=== PATIENT | female | born 1945 | race Caucasian/White ===

== ENCOUNTER → 2016-09-09 | Outpatient (CLI) | payer MEDICARE, BC ==
[2016-09-09 08:53] LABS: Bilirubin, Delta 0.3 mg/dL (0.0-0.2)
== END | disposition home or self-care (01) ==
LOC: LABWHC1 07:57
PROVIDERS: ATTEND Internal Medicine Cardiovascular Disease
DX: E78.5 Hyperlipidemia, unspecified (principal)
CPT/HCPCS: 36415; 80061; 80076

== ENCOUNTER → 2017-02-03 | Outpatient (CLI) | payer MEDICARE, BC ==
--- NOTE | 2017-02-05 08:36 | MM ---
Reason for exam: screening (asymptomatic). Last mammogram was performed 1 year ago. History: Patient is postmenopausal. Family history of breast cancer in maternal cousin and breast cancer in cousin. Benign left mammotome panel of the left breast, October 28, 2011. Took estrogen for 10 years beginning at age 55. Took progesterone for 10 years beginning at age 55. Physical Findings: A clinical breast exam by your physician is recommended on an annual basis and results should be correlated with mammographic findings. MG 3D Screening Mammo W/Cad Bilateral CC and MLO view(s) were taken. Prior study comparison: January 23, 2016, bilateral MG 3d screening mammo w/cad. December 30, 2014, bilateral MG screening mammo w CAD. The breast tissue is heterogeneously dense. This may lower the sensitivity of mammography. Finding: There are typically benign vascular, dystrophic, round calcifications in both breasts. Previous mammotome biopsy in the left breast. There is a chronic nodularity bilaterally. There is no discrete abnormality. ASSESSMENT: Benign, BI-RAD 2 RECOMMENDATION: Routine screening mammogram of both breasts in 1 year.
== END | disposition home or self-care (01) ==
LOC: RADMAMWWP 14:50
PROVIDERS: ATTEND Family Medicine
DX: Z12.31 Encounter for screening mammogram for malignant neoplasm of breast (principal)
CPT/HCPCS: 77063; G0202

== ENCOUNTER → 2017-09-15 | Outpatient (CLI) | payer MEDICARE, BC ==
--- NOTE | 2017-09-15 13:45 | NM ---
EXAMINATION TYPE: NM bone scan whole body DATE OF EXAM: 09/15/2017 COMPARISON: 02/25/2014 HISTORY: 71-year-old female with low back pain and mid back pain for one month. Patient fell one neisha h ago. No history of cancer. Left hip replacement 2 years ago. Technique: Delayed whole-body scanning was performed following the injection of 24.0 mCi Tc 99m MDP. Images acquired 3 hours post injection. FINDINGS: Degenerative tracer activity at the shoulders, wrists/base of the thumbs, and knees. The previous abn ormal activity at L1 has resolved. There is no abnormal intense activity at the T11 and T12 levels. N o suspicious distribution of tracer to suggest osseous metastatic disease. Some activity relating to degenerative facet arthropathy in the lower lumbar spine. Photopenic defect at the left hip compatibl e with patient's hip replacement. IMPRESSION: 1. Focal intense activity involving the T11 and T12 vertebral bodies suggesting underlying acute or s ubacute vertebral body fractures. Clinically correlate. 2. The previous abnormal L1 activity has resolved in the interval.
== END | disposition home or self-care (01) ==
LOC: RADNMMAIN 09:44
PROVIDERS: ATTEND Physical Medicine & Rehabilitation
DX: M54.5 Low back pain (principal); M47.817 Spondylosis without myelopathy or radiculopathy, lumbosacral region; M54.6 Pain in thoracic spine; M47.814 Spondylosis without myelopathy or radiculopathy, thoracic region
CPT/HCPCS: 78306; A9503

== ENCOUNTER → 2018-02-16 | Outpatient (CLI) | payer MEDICARE, BC ==
--- NOTE | 2018-02-16 10:33 | XR ---
EXAMINATION TYPE: XR chest 2V DATE OF EXAM: 02/16/2018 COMPARISON: None TECHNIQUE: PA and lateral views submitted. HISTORY: Dyspnea FINDINGS: The lungs are clear and there is no pneumothorax, pleural effusion, or focal pneumonia. Chronic sev ere compression fracture lower thoracic spine stable relative to x-ray 09/09/2017 thoracic spine. Athe rosclerotic change of the aorta. Sclerotic lesion left humeral head. No overt failure. Arthropathy of the shoulder. IMPRESSION: 1. No acute process. 2. Sclerotic lesion left humeral head. Differential diagnosis includes a bone infarction or chondroid lesion. Correlate with the patient's symptoms and if necessary with bone scan.
== END | disposition home or self-care (01) ==
LOC: RADXRMAIN 10:14
PROVIDERS: ATTEND Family Medicine
DX: R06.09 Other forms of dyspnea (principal); I10 Essential (primary) hypertension
CPT/HCPCS: 71046

== ENCOUNTER → 2018-03-31 | Outpatient (CLI) | payer MEDICARE, BC ==
--- NOTE | 2018-04-01 11:41 | MM ---
Reason for exam: screening (asymptomatic). Last mammogram was performed 1 year and 2 months ago. History: Patient is postmenopausal. Family history of breast cancer in maternal cousin and breast cancer in cousin. Benign left mammotome panel of the left breast, October 28, 2011. Took estrogen for 10 years beginning at age 55. Took progesterone for 10 years beginning at age 55. Physical Findings: A clinical breast exam by your physician is recommended on an annual basis and results should be correlated with mammographic findings. MG 3D Screening Mammo W/Cad Bilateral CC and MLO view(s) were taken. Prior study comparison: February 03, 2017, bilateral MG 3d screening mammo w/cad. January 31, 2016, left breast MG 3d work up w/cad LT. The breast tissue is heterogeneously dense. This may lower the sensitivity of mammography. Stable benign calcifications. There is chronic nodularity bilaterally. No significant changes when compared with prior studies. ASSESSMENT: Benign, BI-RAD 2 RECOMMENDATION: Routine screening mammogram of both breasts in 1 year.
== END | disposition home or self-care (01) ==
LOC: RADMAMWWP 13:09
PROVIDERS: ATTEND Family Medicine
DX: Z12.31 Encounter for screening mammogram for malignant neoplasm of breast (principal)
CPT/HCPCS: 77063; 77067

== ENCOUNTER → 2018-10-06 | Outpatient (CLI) | payer MEDICARE, BC ==
[2018-10-06 10:55] LABS: Basophils % (A) 1 %; Eosinophils # (A) 0.1 k/uL (0-0.7); Eosinophils % (A) 2 %; HCT 46.8 % (34.0-46.0); Lymphocytes # (A) 1.5 k/uL (1.0-4.8); Lymphocytes % (A) 26 %; MCH 31.5 pg (25.0-35.0); MCV 98.4 fL (80.0-100.0); Mean Platelet Volume 7.2; Monocytes # (A) 0.4 k/uL (0-1.0); Monocytes % (A) 6 %; Neutrophils # (A) 3.6 k/uL (1.3-7.7); Neutrophils % (A) 62 %; Platelet Count 243 k/uL (150-450); RBC 4.75 m/uL (3.80-5.40); RDW 13.2 % (11.5-15.5); WBC 5.8 k/uL (3.8-10.6)
[2018-10-06 18:46] LABS: Albumin 4.4 g/dL (3.80-4.90); Albumin/Globulin Ratio 1.63 (1.60-3.17); Anion Gap 11.1 mmol/L (4.00-12.00); Calcium 9.3 mg/dL (8.7-10.3); Carbon Dioxide 24.9 mmol/L (21.6-31.8); Globulin 2.7 g/dL (1.6-3.3); LDL Cholesterol,Calculated 84.6 mg/dL (0.0-131.0); Potassium 4.4 mmol/L (3.5-5.5); Total Bilirubin 0.7 mg/dL (0.2-1.2); Total Protein 7.1 g/dL (6.2-8.2); VLDL Calculation 15.4 mg/dL (5.00-40.00)
[2018-10-06 18:55] LABS: T4, Free (Free Thyroxine) 1.3 ng/dL (0.80-1.80)
[2018-10-06 21:00] LABS: Hemoglobin A1C 5.7 % (4.0-6.0)
== END | disposition home or self-care (01) ==
LOC: LABWHC1 10:04
PROVIDERS: ATTEND Family Medicine
DX: E78.5 Hyperlipidemia, unspecified (principal); E03.9 Hypothyroidism, unspecified; I10 Essential (primary) hypertension; R73.01 Impaired fasting glucose
CPT/HCPCS: 36415; 80053; 80061; 83036; 84439; 84443; 85025

== ENCOUNTER → 2019-06-08 | Outpatient (CLI) | payer MEDICARE, BC ==
--- NOTE | 2019-06-09 07:51 | MM ---
Reason for exam: additional evaluation requested from abnormal screening. Last mammogram was performed less than 1 month ago. History: Patient is postmenopausal. Family history of breast cancer in maternal cousin and breast cancer in cousin. Benign left mammotome panel of the left breast, October 28, 2011. Took estrogen for 10 years beginning at age 55. Took progesterone for 10 years beginning at age 55. Physical Findings: Nurse did not find any significant physical abnormalities on exam. MG 3D Work Up W/Cad LT Spot compression CC and spot compression MLO view(s) were taken of the left breast. Prior study comparison: May 25, 2019, bilateral MG 3d screening mammo w/cad. March 31, 2018, bilateral MG 3d screening mammo w/cad. The breast tissue is heterogeneously dense. This may lower the sensitivity of mammography. Benign appearing calcifications in the left breast. The previously seen abnormality resolves on additional views and appears as fibroglandular tissue compatible with summation. No suspicious abnormality. These results were verbally communicated with the patient and result sheet given to the patient on 06/08/19. ASSESSMENT: Benign, BI-RAD 2 RECOMMENDATION: Return to routine screening mammogram schedule for both breasts.
== END | disposition home or self-care (01) ==
LOC: RADMAMWWP 14:59
PROVIDERS: ATTEND Family Medicine
DX: R92.8 Other abnormal and inconclusive findings on diagnostic imaging of breast (principal)
CPT/HCPCS: 77065; G0279; 77061

== ENCOUNTER → 2019-12-10 | Outpatient (CLI) | payer MEDICARE, BC ==
--- NOTE | 2019-12-10 10:14 | US ---
EXAMINATION TYPE: US thyroid st tissue head/neck DATE OF EXAM: 12/10/2019 COMPARISON: NONE CLINICAL HISTORY: E03.9 Hypothyroidism. on thyroid meds for years GLAND SIZE: Right Lobe: 4.3 x 1.0 x 1.7 cm Overall Parenchyma: heterogenous Left Lobe: 4.9 x 1.1 x 1.1 cm Overall Parenchyma: heterogeneous Isthmus Thickness: 0.4 cm NODULES RIGHT: # of nodules measured on right: 0 LEFT: # of nodules measured on left: 0 ISTHMUS: # of nodules measured in the isthmus: 0 Bilateral neck scanned, no evidence of lymphadenopathy. IMPRESSION: 1. Normal thyroid ultrasound
--- NOTE | 2019-12-10 10:45 | US ---
EXAMINATION TYPE: US abdomen limited DATE OF EXAM: 12/10/2019 COMPARISON: NONE CLINICAL HISTORY: R94.5 Abnormal liver function test. No symptoms EXAM MEASUREMENTS: Liver Length: 13.9 cm Gallbladder Wall: 0.2 cm CBD: 0.5 cm Right Kidney: 9.5 x 4.6 x 5.2 cm Pancreas: wnl Liver: difficult to penetrate, high placement within liver Gallbladder: wnl Evidence for sonographic Perales's sign: no CBD: wnl Right Kidney: wnl IMPRESSION: 1. Right upper quadrant ultrasound is unremarkable.
== END | disposition home or self-care (01) ==
LOC: RADUSWWP 09:31
PROVIDERS: ATTEND Family Medicine
DX: E03.9 Hypothyroidism, unspecified (principal); R94.5 Abnormal results of liver function studies
CPT/HCPCS: 76536; 76705

== ENCOUNTER → 2020-06-02 | Outpatient (CLI) | payer MEDICARE, BC ==
--- NOTE | 2020-06-05 09:31 | MM ---
Reason for exam: screening (asymptomatic). Last mammogram was performed 1 year ago. History: Patient is postmenopausal. Family history of breast cancer in maternal cousin and breast cancer in cousin. Benign left mammotome panel of the left breast, October 28, 2011. Took estrogen for 10 years beginning at age 55. Took progesterone for 10 years beginning at age 55. Physical Findings: A clinical breast exam by your physician is recommended on an annual basis and results should be correlated with mammographic findings. MG 3D Screening Mammo W/Cad Bilateral CC and MLO view(s) were taken. Prior study comparison: June 08, 2019, left breast MG 3d work up w/cad LT. May 25, 2019, bilateral MG 3d screening mammo w/cad. The breast tissue is heterogeneously dense. This may lower the sensitivity of mammography. There are benign appearing round, vascular calcifications bilaterally. Previous mammotome biopsy in the left breast. There is chronic nodularity in the right breast. Asymmetric breast tissue stable posterior medial position. There is no discrete abnormality. ASSESSMENT: Benign, BI-RAD 2 RECOMMENDATION: Routine screening mammogram of both breasts in 1 year.
== END | disposition home or self-care (01) ==
LOC: RADMAMWWP 10:51
PROVIDERS: ATTEND Family Medicine
DX: Z12.31 Encounter for screening mammogram for malignant neoplasm of breast (principal)
CPT/HCPCS: 77063; 77067

== ENCOUNTER 2021-01-26 09:24 | Day surgery (SDC) | payer MEDICARE, BC ==
[2021-01-24 09:29] VITALS: BMI 30.8
[~2021-01-26 09:24] MED LIST: LACTATED RINGERS 1,000 ML IV SCH
[2021-01-26] MEDS ORDERED: LACTATED RINGERS 1,000 ML IV ONE ×2 (09:39)
[2021-01-26 09:46] VITALS: RESP 16; TEMP 97.8
[2021-01-26] MEDS ORDERED: LIDOCAINE 1% (10MG/ML) FOR IV START INTRADERMA ONE (09:52)
[2021-01-26] MEDS ORDERED: fentaNYL (PF) 50 MCG/ML 2 ML AMP ONE (10:33)
[2021-01-26] MEDS ORDERED: PROPOFOL 10 MG/ML 20 ML VIAL IV ONE (10:33)
[2021-01-26] MEDS ORDERED: MIDAZOLAM 2 MG/2 ML VIAL ONE (10:33)
--- NOTE | 2021-01-26 10:50 | P.PCN ---
Date of Procedure: 01/26/21 Procedure(s) Performed: BRIEF HISTORY: Patient is a 75-year-old pleasant white female scheduled for an elective colonoscopy as a part of screening for colorectal neoplasia. PROCEDURE PERFORMED: Colonoscopy with biopsy PREOPERATIVE DIAGNOSIS: Screening for colon cancer. IV sedation per Anesthesia. PROCEDURE: After informed consent was obtained, the patient, was brought into the endoscopy unit. IV sedation was administered by Anesthesia under continuous monitoring. Digital rectal examination was normal. Initially the Olympus CF-160 flexible video colonoscope was then inserted in the rectum, gradually advanced into the cecum without any difficulty. Careful examination was performed as the scope was gradually being withdrawn. Ileocecal valve and the appendiceal orifice were visualized and appeared normal. Prep was excellent. In the base of the cecum there were 2 polyps measuring 3 mm in size both of which were removed by cold biopsy. Mucosa of the cecum, ascending colon, transverse colon, descending colon, sigmoid colon, and rectum appeared normal. At her sigmoid diverticulosis seen. Retroflexion was performed in the rectum and no lesions were seen. The patient tolerated the procedure well. IMPRESSION: 3 mm 2 cecal polyps status post cold biopsy Scattered sigmoid diverticulosis RECOMMENDATIONS: Findings of this examination were discussed with the patient .as well as a family. She was advised to follow with the biopsy results. If the biopsy reveals adenoma she can have a repeat colonoscopy in 5 years
[2021-01-26 11:08] VITALS: BP 140/73; PULSE 67
== END 2021-01-26 11:21 | disposition home or self-care (01) ==
LOC: ORWHC2ENDO 09:24
PROVIDERS: ATTEND Internal Medicine Gastroenterology
DX: Z12.11 Encounter for screening for malignant neoplasm of colon (principal); D12.0 Benign neoplasm of cecum; K57.30 Diverticulosis of large intestine without perforation or abscess without bleeding; I10 Essential (primary) hypertension; K21.9 Gastro-esophageal reflux disease without esophagitis; J45.909 Unspecified asthma, uncomplicated; E07.9 Disorder of thyroid, unspecified; Z79.890 Hormone replacement therapy; Z79.899 Other long term (current) drug therapy
CPT/HCPCS: 88305; 45380; J2250; J3010; J2704

== ENCOUNTER → 2021-03-21 | Outpatient (CLI) | payer MEDICARE, BC ==
[2021-03-21 17:53] LABS: HGB 16.7 g/dL (12.0-15.0); MCH 33.7 pg (27.0-32.0); MCHC 32.7 g/dL (32.0-37.0); MCV 102.8 fL (80.0-97.0); Mean Platelet Volume 9.7 fL (9.5-12.2); Platelet Count 191 X 10*3/uL (140-440); RBC 4.96 X 10*6/uL (4.10-5.20); RDW 12.7 % (11.5-14.5); WBC 5.73 X 10*3/uL (4.50-10.00)
[2021-03-21 18:52] LABS: Hepatitis A Antibody IgM Nonreactive (Nonreactive); Hepatitis B Core IgM Nonreactive (Nonreactive); Hepatitis B Surface Antigen Nonreactive (Nonreactive); Hepatitis C IgG Antibody Nonreactive (Nonreactive)
[2021-03-21 18:59] LABS: Albumin/Globulin Ratio 1.31 (1.60-3.17); Bilirubin, Conjugated 0.23 mg/dL (0.20-0.40); Bilirubin,Unconjugated 0.42 mg/dL (0.20-1.00); Globulin 3.1 g/dL (1.6-3.3); Total Bilirubin 0.6 mg/dL (0.30-1.20); Total Protein 7.1 g/dL (6.2-8.2)
== END | disposition home or self-care (01) ==
LOC: LABWHC1 08:22
PROVIDERS: ATTEND Physician Assistant
DX: R94.5 Abnormal results of liver function studies (principal)
CPT/HCPCS: 36415; 80074; 80076; 85027

== ENCOUNTER → 2021-09-04 | Outpatient (CLI) | payer MEDICARE ==
--- NOTE | 2021-09-04 10:28 | US ---
EXAMINATION TYPE: US liver DATE OF EXAM: 09/04/2021 COMPARISON: 12/10/2019 CLINICAL HISTORY: 75-year-old female R94.5 Abnormal results of liver function studies. TECHNIQUE: Multiple sonographic images of the right upper quadrant are obtained. FINDINGS: EXAM MEASUREMENTS: Liver Length: 14.8 cm Gallbladder Wall: 0.2 cm CBD: 0.3 cm Right Kidney: 10.0 x 4.7 x 4.6 cm Pancreas: Body wnl as seen, mostly obscured by overlying bowel Liver: Increased echogenicity there is slight heterogeneous echotexture and slight far field attenua tion. Gallbladder: wnl Evidence for sonographic Perales's sign: no CBD: wnl Right Kidney: Inferior pole obscured by overlying bowel gas. No hydronephrosis. IMPRESSION: 1. Mild to moderate hepatic steatosis. 2. No gallstones or biliary ductal dilatation.
[2021-09-04 14:35] LABS: HGB 15.5 g/dL (12.0-15.0); MCH 33.1 pg (27.0-32.0); MCHC 32.3 g/dL (32.0-37.0); MCV 102.6 fL (80.0-97.0); Mean Platelet Volume 9.8 fL (9.5-12.2); NRBC Per 100 WBC 0 /100 WBCS (0.0-0.0); Platelet Count 178 X 10*3/uL (140-440); RBC 4.68 X 10*6/uL (4.10-5.20); RDW 11.8 % (11.5-14.5); WBC 5.19 X 10*3/uL (4.50-10.00)
[2021-09-04 15:30] LABS: % Iron Saturation 45.66 (12.00-45.00); ALT 56 U/L (8-44); AST 46 U/L (13-35); Albumin 4.5 g/dL (3.8-4.9); Albumin/Globulin Ratio 1.45 (1.60-3.17); Alkaline Phosphatase 72 U/L (41-126); Bilirubin, Conjugated <0.20 mg/dL (0.20-0.40); Globulin 3.1 g/dL (1.6-3.3); Iron 163 ug/dL (50-170); Total Iron Binding Capacity 357 ug/dL (228-460); Total Protein 7.6 g/dL (6.2-8.2)
[2021-09-04 15:41] LABS: Ceruloplasmin 23.8 mg/dL (20.0-60.0)
[2021-09-06 15:31] LABS: Gamma Globulin 1.66 g/dL (0.70-1.50)
== END | disposition home or self-care (01) ==
LOC: RADUSWWP 08:48
PROVIDERS: ATTEND Internal Medicine Gastroenterology
DX: K76.0 Fatty (change of) liver, not elsewhere classified (principal); R94.5 Abnormal results of liver function studies
CPT/HCPCS: 76705; 80076; 82103; 82390; 82728; 83516; 83540; 83550; 84165; 85027; 86038; 86039

== ENCOUNTER → 2021-09-18 | Outpatient (CLI) | payer MEDICARE | END | disposition home or self-care (01) | LOC: LABWHC1 09:11 | PROVIDERS: ATTEND Internal Medicine Gastroenterology | DX: K76.0 Fatty (change of) liver, not elsewhere classified (principal); R94.5 Abnormal results of liver function studies | CPT/HCPCS: 36415 ==

== ENCOUNTER → 2021-10-03 | Outpatient (CLI) | payer MEDICARE ==
--- NOTE | 2021-10-05 11:51 | MM ---
Reason for exam: screening (asymptomatic). Last mammogram was performed 1 year and 4 months ago. History: Patient is postmenopausal. Family history of breast cancer in maternal cousin and breast cancer in cousin. Benign left mammotome panel of the left breast, October 28, 2011. Took estrogen for 10 years beginning at age 55. Took progesterone for 10 years beginning at age 55. Physical Findings: A clinical breast exam by your physician is recommended on an annual basis and results should be correlated with mammographic findings. MG 3D Screening Mammo W/Cad Bilateral CC and MLO view(s) were taken. Prior study comparison: June 02, 2020, bilateral MG 3d screening mammo w/cad. June 08, 2019, left breast MG 3d work up w/cad LT. The breast tissue is heterogeneously dense. This may lower the sensitivity of mammography. Previous mammotome biopsy in the left breast. Benign oil cyst and vascular calcifications. No significant changes when compared with prior studies. ASSESSMENT: Benign, BI-RAD 2 RECOMMENDATION: Routine screening mammogram of both breasts in 1 year.
== END | disposition home or self-care (01) ==
LOC: RADMAMWWP 15:05
PROVIDERS: ATTEND Family Medicine
DX: Z12.31 Encounter for screening mammogram for malignant neoplasm of breast (principal); Z78.0 Asymptomatic menopausal state; Z80.3 Family history of malignant neoplasm of breast
CPT/HCPCS: 77063; 77067

== ENCOUNTER → 2022-11-08 | Outpatient (CLI) | payer MEDICARE ==
--- NOTE | 2022-11-11 09:27 | MM ---
Reason for Exam: Screening (asymptomatic). Last mammogram was performed 1 year(s) and 1 month(s) ago. Patient History: Menarche at age 17. First Full-Term at age 25. Postmenopausal. Estrogen for 10 years from age 55 until age 65. Progesterone for 10 years from age 55 until age 65. 10/28/2011, Benign Core Biopsy on the left side. Maternal cousin had breast cancer. Maternal cousin had breast cancer. Risk Values: Altagracia 5 year model risk: 1.7%. NCI Lifetime model risk: 3.9%. Prior Study Comparison: 01/23/2016 Bilateral Screening Mammogram, [facility]. 01/31/2016 Left Diagnostic Mammogram, [facility]. 02/03/2017 Bilateral Screening Mammogram, [facility]. 03/31/2018 Bilateral Screening Mammogram, [facility]. 05/25/2019 Bilateral Screening Mammogram, [facility] 06/08/2019 Left Diagnostic Mammogram, [facility]. 06/02/2020 Bilateral Screening Mammogram, [facility]. 10/03/2021 Bilateral Screening Mammogram, [facility]. Tissue Density: The breast tissue is heterogeneously dense. This may lower the sensitivity of mammography. Findings: Analyzed By CAD. There is no suspicious group of microcalcifications or new suspicious mass in either breast. Overall Assessment: Benign, BI-RAD 2 Management: Screening Mammogram of both breasts in 1 year. . Patient should continue monthly self-breast exams. A clinical breast exam by your physician is recommended on an annual basis. This exam should not preclude additional follow-up of suspicious palpable abnormalities. Note on Altagracia scores and lifetime risk: 1. A Altagracia score greater than 3% is considered moderate risk. If this is the case, consider specialist referral to assess eligibility for a risk reducing agent. 2. If overall lifetime risk for the development of breast cancer is 20% or higher, the patient may qualify for future screening with alternating mammogram and breast MRI. Electronically signed and approved by: Gino Dumont M.D. Radiologis
== END | disposition home or self-care (01) ==
LOC: RADMAMWWP 13:15
PROVIDERS: ATTEND Family Medicine
DX: Z12.31 Encounter for screening mammogram for malignant neoplasm of breast (principal); Z78.0 Asymptomatic menopausal state; Z80.3 Family history of malignant neoplasm of breast
CPT/HCPCS: 77063; 77067

== ENCOUNTER → 2023-01-21 | Outpatient (CLI) | payer MEDICARE ==
[2023-01-21 12:25] LABS: African American GFR (CKD) >90 (>60 ml/min/1.73 sqM); Anion Gap 9 mmol/L; Blood Urea Nitrogen 24 mg/dL (7-17); Calcium 9.5 mg/dL (8.4-10.2); Carbon Dioxide 26 mmol/L (22-30); Chloride 101 mmol/L (98-107); Glucose 117 mg/dL (74-99); Non-African American GFR(CKD) 84 (>60 ml/min/1.73 sqM); Potassium 4.2 mmol/L (3.5-5.1); Sodium 136 mmol/L (137-145)
[2023-01-21 12:33] LABS: NT-Pro-B-Type Natriuretic Pept 55 pg/mL
== END | disposition home or self-care (01) ==
LOC: LABWHC1 10:43
PROVIDERS: ATTEND Internal Medicine Cardiovascular Disease
DX: R60.9 Edema, unspecified (principal)
CPT/HCPCS: 36415; 80048; 83880

== ENCOUNTER → 2024-06-18 | Outpatient (CLI) | payer MEDICARE ==
--- NOTE | 2024-06-18 13:15 | MM ---
Reason for Exam: Screening (asymptomatic). Last mammogram was performed 1 year(s) and 7 month(s) ago. Patient History: Menarche at age 17. First Full-Term at age 25. Postmenopausal. Estrogen for 10 years from age 55 until age 65. Progesterone for 10 years from age 55 until age 65. 10/28/2011, Benign Core Biopsy on the left side. Maternal cousin had breast cancer. Maternal cousin had breast cancer. Risk Values: Altagracia 5 year model risk: 1.7%. NCI Lifetime model risk: 3.5%. Prior Study Comparison: 06/02/2020 Bilateral Screening Mammogram, [facility]. 10/03/2021 Bilateral Screening Mammogram, [facility]. 11/08/2022 Bilateral MG 3D screening mammo w/cad, [facility]. Tissue Density: The breasts are heterogeneously dense, which may obscure small masses. Findings: Analyzed By CAD. Areas of asymmetric density are unchanged. A few scattered benign round and vascular calcifications are noted. Microclip left breast prior biopsy. Benign coarse calcifications posterior left breast unchanged. There is no suspicious group of microcalcifications or new suspicious mass in either breast. Overall Assessment: Benign, BI-RAD 2 Management: Screening Mammogram of both breasts in 1 year. Patient should continue monthly self-breast exams. A clinical breast exam by your physician is recommended on an annual basis. This exam should not preclude additional follow-up of suspicious palpable abnormalities. Note on Altagracia scores and lifetime risk: 1. A Altagracia score greater than 3% is considered moderate risk. If this is the case, consider specialist referral to assess eligibility for a risk reducing agent. 2. If overall lifetime risk for the development of breast cancer is 20% or higher, the patient may qualify for future screening with alternating mammogram and breast MRI. [facility], , 06/18/2024 1:11 PM. Electronically signed and approved by: Franco Price M.D. Radiologist
--- NOTE | 2024-06-18 18:27 | BD ---
EXAMINATION TYPE: Axial Bone Density DATE OF EXAM: 06/18/2024 CLINICAL HISTORY: 78 years old Female. ICD-10 CODE: Z78.0 MENOPAUSAL , Additional History: Height: 65 Weight: 192.9 FRAX RISK QUESTIONS: Alcohol (3 or more units per day): yes Family History (Parent hip fracture): no Glucocorticoids (More than 3mos): no (Ex: prednisone, prednisolone, methylprednisolone, dexamethasone, and hydrocortisone). History of Fracture in Adulthood: yes Secondary Osteoporosis: 1. Type 1 Diabetes: no 2. Hyperthyroidism: no 3. Menopause before 45: no 4. Malnutrition: no 5. Chronic liver disease: no Rheumatoid Arthritis: no Current Tobacco Use: no RISK FACTORS HISTORY OF: Hip Fracture (Right/Left): no Spine Fracture: no History of Wrist Fracture: no Surgery to Spine/Hip(right/left)/Wrist (right/left): Bilateral Hip Replacement When: 2015 and 2022 MEDICATIONS: Thyroid Medications: Levothyroxine Osteoporosis Medications: no EXAM MEASUREMENTS: Bone mineral densitometry was performed using the [employer]. Bone mineral density as measured about the Lumbar spine is: ----- L1-L4(G/cm2): 1.243 T Score Values are as follows: ----- L1: -0.2 ----- L2: 0.4 ----- L3: 0.3 ----- L4: 1.3 ----- L1-L4: 0.5 Z Score Values are as follows: ----- L1: 0.8 ----- L2: 1.4 ----- L3: 1.3 ----- L4: 2.4 ----- L1-L4: 1.6 Bone mineral density has: increased 1.6% since the study of 05/25/2019 Bone mineral density about the L Wrist (g/cm2): 0.546 T Score values are as follows: -----Dist. R+U: -3.5 -----Prox. R+U: -1.4 -----Radius total: -2.1 Z Score values are as follows: -----Dist. R+U: -1.1 -----Prox. R+U: 1.0 -----Radius total: 0.3 Baseline Study IMPRESSION: Osteopenia (T Score between -2.5 and -1). There is slightly increased risk of fracture and the patient may be considered for treatment. Re-Screen 2-5 years. NOTE: T-SCORE=SD OF THE YOUNG ADULT MEAN. [facility], , 06/18/2024 6:25 PM
== END | disposition home or self-care (01) ==
LOC: RADMAMWWP 12:34
PROVIDERS: ATTEND Family Medicine
DX: Z12.31 Encounter for screening mammogram for malignant neoplasm of breast (principal); R92.333 Mammographic heterogeneous density, bilateral breasts; Z78.0 Asymptomatic menopausal state; Z80.3 Family history of malignant neoplasm of breast
CPT/HCPCS: 77063; 77067; 77080

== ENCOUNTER → 2024-11-02 | Outpatient (CLI) | payer MEDICARE | LOC: CPPFTMAIN 12:39 | DX: R06.02 Shortness of breath (principal); Z88.0 Allergy status to penicillin; Z87.891 Personal history of nicotine dependence | CPT/HCPCS: 94060; 94726; 94729 ==